=== PATIENT | male | born 1970 | race African-American/Black ===

== ENCOUNTER 2018-03-30 08:54 | Emergency (ER) | payer MEDICAID ==
[~2018-03-30] VITALS: Ht 170.2 cm; Wt 79.8 kg
[2018-03-30 13:07] VITALS: BP 131/75
[2018-03-30] MEDS ORDERED: cefTRIAXone SOD 1,000 MG VL IM ONE (13:30)
[2018-03-30] MEDS ORDERED: HYDROcodone-ACET 10/325MG TAB PO ONE (13:30)
[2018-03-30] MEDS ORDERED: LIDOCAINE 1% (LOCAL ANESTH.) PF 5ml SDV ONE (13:40)
[2018-03-30] MEDS ORDERED: LIDOCAINE 1% HCL (LOCAL ANESTH.) INJ 20ML MDV IJ ONE (13:45)
== END 2018-03-30 14:25 | disposition home or self-care (01) ==
LOC: ER 08:54
DX: L03.116 Cellulitis of left lower limb (principal); F17.210 Nicotine dependence, cigarettes, uncomplicated
CPT/HCPCS: 73562; 87077; 87186; 87205; 96372; 99285; J0696

== ENCOUNTER 2023-03-25 18:00 | Emergency (ER) | payer MEDICAID ==
[~2023-03-25] VITALS: Ht 175.3 cm; Wt 78.4 kg
[2023-03-26] MEDS ORDERED: IBUP-1456 PO (01:44)
[2023-03-26] MEDS ORDERED: CLIN300C70 PO (01:44)
[2023-03-26] MEDS ORDERED: CEPH500C PO (01:44)
[2023-03-26] MEDS ORDERED: KETOROLAC TROMETH 60MG/2ML VIAL IM ONE (01:45)
[2023-03-26] MEDS ORDERED: TETANUS-DIPTH-ACEL PERTUSSIS 0.5ML SYR Tdap IM ONE (01:45)
[2023-03-26] MEDS ORDERED: cefTRIAXone SOD 1,000 MG VL IM ONE (01:45)
[2023-03-26 02:27] VITALS: BP 131/76; PULSE 84; RESP 16; TEMP 98.2; O2SAT 98
== END 2023-03-26 02:20 | disposition home or self-care (01) ==
LOC: ER 18:00
DX: L03.115 Cellulitis of right lower limb (principal); F17.210 Nicotine dependence, cigarettes, uncomplicated
CPT/HCPCS: 73630; 73700; 90471; 90715; 96372; 99285; J0696; J1885